=== PATIENT | female | born 1995 ===

== ENCOUNTER 2018-08-14 13:12 | Emergency (ER) | payer OTHER ==
[~2018-08-14] VITALS: Ht 167.6 cm; Wt 79.4 kg
[2018-08-14] MEDS ORDERED: PRENATABS FA T1 EACH (13:35)
== END 2018-08-14 21:46 | disposition home or self-care (01) ==
LOC: ER 13:12
DX: O26.892 Other specified pregnancy related conditions, second trimester (principal); D25.9 Leiomyoma of uterus, unspecified; Z34.02 Encounter for supervision of normal first pregnancy, second trimester

== ENCOUNTER 2018-12-14 10:00 | Inpatient (IN) | payer OTHER ==
[~2018-12-14] VITALS: Ht 165.1 cm; Wt 3.2 kg
[~2018-12-14 10:00] MED LIST: PRENATABS FA T1 EACH
[2018-12-14] MEDS ORDERED: LEVOTHYROXINE25 MCG (13:00)
[2018-12-14] MEDS ORDERED: IRON1TAB4 (13:00)
== END 2018-12-23 16:11 | disposition home or self-care (01) | DRG 788 ==
LOC: O/R 10:00 → OB/GYN 12-20 05:55
PROVIDERS: ADMIT Obstetrics & Gynecology
PROC: 4A1HXCZ Monitoring of Products of Conception, Cardiac Rate, External Approach (ICD-10-PCS; 2018-12-20)
PROC: 10D00Z1 Extraction of Products of Conception, Low, Open Approach (ICD-10-PCS; principal; 2018-12-20 07:00)
DX: O82 Encounter for cesarean delivery without indication (principal); O75.89 Other specified complications of labor and delivery; Z3A.39 39 weeks gestation of pregnancy; Z37.0 Single live birth